=== PATIENT | male | born 1950 | race Hispanic/Latino ===

== ENCOUNTER 2018-10-29 17:55 | Emergency (ER) | payer OTHER ==
[~2018-10-29] VITALS: Ht 165.1 cm; Wt 105.2 kg
[2018-10-29] MEDS ORDERED: TETRACAINE HCL 0.5% 4 ML OPHTH SOLN ONE (19:25)
[2018-10-29] MEDS ORDERED: FLUORESCEIN SODIUM 1 STRIP STRIP ONE (19:25)
[2018-10-29] MEDS ORDERED: VALACYCLOVIR HCL 500 MG TABLET PO SCH (20:15)
== END 2018-10-29 21:39 | disposition home or self-care (01) ==
LOC: EDH 17:55
DX: B02.30 Zoster ocular disease, unspecified (principal); E78.5 Hyperlipidemia, unspecified; Z88.8 Allergy status to other drugs, medicaments and biological substances